=== PATIENT | female | born 1960 | race Caucasian/White ===

== ENCOUNTER → 2019-04-16 06:54 | Outpatient (CLI) | payer BC, SELFPAY ==
[2019-04-16 07:32] LABS: Add Manual Diff / Slide Review NO; Basophils Absolute Auto 100 /uL (0-100); Eosinophils Absolute Auto 200 /uL (0-450); Eosinophils Percent Auto 3.2 % (2-4); Hemoglobin 14.7 g/dL (12.0-16.0); Lymphocytes Absolute Auto 1600 /uL (1100-4500); Mean Corpuscular HGB Conc 34.2 % (30-36); Mean Corpuscular Hemoglobin 31.7 PG (26-34); Mean Corpuscular Volume 92.7 fL (80-100); Monocytes Absolute Auto 300 /uL (0-900); Monocytes Percent Auto 6.6 % (3-14); Neutrophils Absolute Auto 3100 /uL (1500-7000); Neutrophils Percent Auto 59.2 % (50-75); Platelet Count 244 X10^3/uL (150-400); Red Blood Cell Count 4.63 X10^6/uL (4.0-5.2); Red Cell Distribution Width 12.7 % (11.6-14.8); White Blood Cell Count 5.2 X10^3/uL (4.5-11.0)
[2019-04-16 07:45] LABS: Hemoglobin A1C% w Est Avg Glu 5.7 % (4.0-6.0)
[2019-04-16 08:52] LABS: Alanine Aminotransferase 14 IU/L (9-52); Albumin 4.3 g/dL (3.5-5.0); Albumin Globulin Ratio 1.5 (1.0-2.8); Alkaline Phosphatase 60 U/L (38-126); Aspartate Aminotransferase 23 IU/L (14-36); BUN Creatinine Ratio 17.8 (6-22); Bilirubin Total 0.8 mg/dL (0.2-1.3); Blood Urea Nitrogen 16 mg/dL (7-17); Calcium 9.8 mg/dL (8.4-10.2); Carbon Dioxide 29 mmol/L (22-32); Chloride 100 mmol/L (98-107); Cholesterol 253 mg/dL (140-199); Estimated Glomerular Filt Rate > 60.0 mL/min (>60); Globulin 2.8 g/dL (1.7-4.1); Glucose 101 mg/dL (80-110); HDL Cholesterol 54 mg/dL (40-60); HEMOLYSIS < 15 (0-50); LDL Cholesterol Calculated 165 mg/dL (<100); Potassium 4.1 mmol/L (3.4-5.1); Sodium 138 mmol/L (137-145); Total Protein 7.1 g/dL (6.3-8.2); Triglycerides 168 mg/dL (35-150)
[2019-04-16 09:07] LABS: Vitamin D 25 Hydroxy (D3) 32.6 ng/mL (30.0-100.0)
[2019-04-16 09:21] LABS: Thyroid Stimulating Hormone 1.14 uIU/mL (0.47-4.68)
== END ==
PROVIDERS: Visit Provider Physician Assistant
DX: E78.49 Other hyperlipidemia (principal); E55.9 Vitamin D deficiency, unspecified; Z13.1 Encounter for screening for diabetes mellitus
CPT/HCPCS: 36415; 80053; 80061; 82306; 83036; 84443; 85025

== ENCOUNTER → 2020-08-03 19:48 | Outpatient (ROUT) | payer BC, SELFPAY ==
[2020-08-03 20:17] LABS: Add Manual Diff / Slide Review NO; Basophils Absolute Auto 0 /uL (0-100); Basophils Percent Auto 0.9 % (0-2); Eosinophils Absolute Auto 200 /uL (0-450); Eosinophils Percent Auto 2.9 % (2-4); Hematocrit 43.8 % (36-46); Hemoglobin 14.6 g/dL (12.0-16.0); Lymphocytes Absolute Auto 1500 /uL (1100-4500); Lymphocytes Percent Auto 28.7 % (25-40); Mean Corpuscular HGB Conc 33.4 % (30-36); Mean Corpuscular Hemoglobin 31.1 PG (26-34); Mean Corpuscular Volume 93.1 fL (80-100); Monocytes Absolute Auto 300 /uL (0-900); Monocytes Percent Auto 5.3 % (3-14); Neutrophils Absolute Auto 3300 /uL (1500-7000); Neutrophils Percent Auto 62.2 % (50-75); Platelet Count 239 X10^3/uL (150-400); Red Cell Distribution Width 12.8 % (11.6-14.8); White Blood Cell Count 5.3 X10^3/uL (4.5-11.0)
[2020-08-03 20:25] LABS: Alanine Aminotransferase 20 IU/L (<35); Albumin 4.4 g/dL (3.5-5.0); Albumin Globulin Ratio 1.6 (1.0-2.8); Alkaline Phosphatase 60 U/L (38-126); Aspartate Aminotransferase 28 IU/L (14-36); BUN Creatinine Ratio 17.6 (6-22); Bilirubin Total 0.8 mg/dL (0.2-1.3); Blood Urea Nitrogen 15 mg/dL (7-17); Calcium 9.6 mg/dL (8.4-10.2); Carbon Dioxide 27 mmol/L (22-32); Chloride 103 mmol/L (98-107); Cholesterol 250 mg/dL (140-199); Estimated Glomerular Filt Rate > 60.0 mL/min (>60); Globulin 2.8 g/dL (1.7-4.1); Glucose 96 mg/dL (80-110); HDL Cholesterol 52 mg/dL (40-60); HEMOLYSIS < 15 (0-50); LDL Cholesterol Calculated 164 mg/dL (<100); Potassium 4.3 mmol/L (3.4-5.1); Sodium 137 mmol/L (137-145); Total Protein 7.2 g/dL (6.3-8.2); Triglycerides 171 mg/dL (35-150)
[2020-08-03 20:26] LABS: Hemoglobin A1C% w Est Avg Glu 5.9 % (4.0-6.0)
[2020-08-03 20:41] LABS: Vitamin D 25 Hydroxy (D3) 32.2 ng/mL (30.0-100.0)
[2020-08-03 20:54] LABS: TSH w/ Reflex to FT4 1.67 uIU/mL (0.47-4.68)
== END ==
PROVIDERS: Visit Provider Physician Assistant
DX: E55.9 Vitamin D deficiency, unspecified (principal); E78.49 Other hyperlipidemia; E03.9 Hypothyroidism, unspecified
CPT/HCPCS: 80053; 80061; 82306; 83036; 84443; 85025

== ENCOUNTER → 2020-12-15 08:34 | Outpatient (CLI) | payer BC, SELFPAY ==
[2020-12-15] MEDS: COVID-19 VACC(MODERNA-1)/PF 100 MCG/0.5 ML VIAL IM (08:41)
== END ==
PROVIDERS: Visit Provider Internal Medicine
DX: Z23 Encounter for immunization (principal)
CPT/HCPCS: 0011A; 91301

== ENCOUNTER → 2021-01-12 08:00 | Outpatient (CLI) | payer BC, SELFPAY ==
[2021-01-12] MEDS: COVID-19 VACC #2, MRNA(MOD) 100 MCG/0.5 ML VIAL IM (08:03)
== END ==
PROVIDERS: Visit Provider Internal Medicine
DX: Z23 Encounter for immunization (principal)
CPT/HCPCS: 0012A; 91301

== ENCOUNTER → 2021-04-02 13:19 | Outpatient (CLI) | payer BC, SELFPAY ==
--- NOTE | 2021-04-02 13:21 | DI.RAD.S_ITS ---
PROCEDURE: XR ANKLE LT MIN 3V INDICATIONS: rolled ankle, swelling, lateral mallelar point tender TECHNIQUE: 3 views of the ankle were acquired. COMPARISON: None. FINDINGS: Bones: Small cortical avulsion fracture at the tip the lateral malleolus. Soft tissues: Overlying soft tissue swelling. IMPRESSION: Cortical fracture involving the tip the lateral malleolus with overlying soft tissue swelling. Dictated by: You Natarajan M.D. on 04/02/2021 at 14:00 Approved by: You Natarajan M.D. on 04/02/2021 at 14:02
== END ==
PROVIDERS: PCP Physician Assistant; Referring Provider Student in an Organized Health Care Education/Training Program; Visit Provider Student in an Organized Health Care Education/Training Program
DX: S82.62XA Displaced fracture of lateral malleolus of left fibula, initial encounter for closed fracture (principal); X58.XXXA Exposure to other specified factors, initial encounter
CPT/HCPCS: 73610

== ENCOUNTER 2021-04-25 12:24 | Emergency (ER) | payer BC, SELFPAY ==
[2021-04-25] VITALS (9 sets, daily range): BP systolic 116–171; BP diastolic 60–79; PULSE 69–79; RESP 10–24; TEMP 36.9; O2SAT 96–100; BMI 25.8
--- NOTE | 2021-04-25 12:26 | DI.RAD.S_ITS ---
PROCEDURE: XR CHEST 1V INDICATIONS: chest pain TECHNIQUE: One view of the chest was acquired. COMPARISON: None. FINDINGS: Surgical changes and devices: None. Lungs and pleura: Lungs are clear. No pleural effusions or pneumothorax. Mediastinum: Mediastinal contours appear normal. Heart size is normal. Bones and chest wall: No suspicious bony lesions. Overlying soft tissues appear unremarkable. IMPRESSION: No acute cardiopulmonary abnormality. Dictated by: Antony Garcia M.D. on 04/25/2021 at 12:50 Approved by: Antony Garcia M.D. on 04/25/2021 at 12:50
--- NOTE | 2021-04-25 12:50 | ED.ARRPALP ---
HPI - Arrhythmia/Palpitations General Chief Complaint: Arrhythmia/Palpitations Stated Complaint: had heart palpitations and high BP Time Seen by Provider: 04/25/21 12:30 Source: patient Mode of arrival: Ambulatory Limitations: no limitations History of Present Illness HPI narrative: Patient is a 60-year-old female who is here for evaluation of palpitations and some lightheadedness. Patient states that this morning she was sitting at work when she had a sudden onset of feeling like her heart was beating fast and skipping beats. She was lightheaded during the time. No chest pain. No shortness of breath. She did have an episode of chest discomfort a couple days ago but that has resolved. She went to a co-worker who took her blood pressure him was told that it was elevated. They contacted EMS who came to her work space and did a EKG which she was told was normal. (I was able to review this and it was sinus rhythm with a normal rate) she was instructed that she needed to come to the emergency department for evaluation. Currently she feels somewhat better than what she did earlier today but not completely back to normal again. She did have a fainting episode almost 2 years ago but nothing since. Related Data Home Medications Medication Instructions Recorded Confirmed levothyroxine 88 mcg capsule 88 mcg PO DAILY 04/02/21 04/02/21 Allergies Allergy/AdvReac Type Severity Reaction Status Date / Time No Known Drug Allergies Allergy Unverified 04/02/21 12:30 Review of Systems Constitutional Constitutional: Denies headache(s) ENT Ears, Nose, Mouth, and Throat: Denies vertigo, Reports dizziness and Denies headache(s) Cardiovascular Cardiovascular: Denies chest pain, Reports rapid heart rate, Reports irregular heart rhythm and Denies dyspnea Respiratory Respiratory: Denies dyspnea Gastrointestinal Gastrointestinal: Reports system reviewed and no additional complaints, except as documented Musculoskeletal Musculoskeletal: Reports system reviewed and no additional complaints, except as documented Integumentary/Breasts Skin/Breast: Reports system reviewed and no additional complaints, except as documented Neurologic Neurologic: Denies vertigo, Reports dizziness and Denies headache(s) Hematologic/Lymphatic On Anticoagulants: No Allergic/Immunologic Allergic/Immunologic: Reports system reviewed and no additional complaints, except as documented Patient History Medical History Fracture, ankle Social History (Reviewed 05/26/21 @ 12:57 by JANICE Ray Smoking Status: Never smoker Smoking Status: Never smoker Substance Use Type: does not use Exam Initial Vital Signs Initial Vital Signs: Vital Signs Temperature 98.5 F 04/25/21 12:36 Pulse Rate 76 04/25/21 12:36 Respiratory Rate 18 04/25/21 12:36 Blood Pressure 171/79 H 04/25/21 12:36 Pulse Oximetry 100 04/25/21 12:36 Const General: cooperative, comfortable and well developed Limitations: mental status not altered HENMT Head: normal to inspection and normocephalic Resp Effort & Inspection: normal respiratory effort Auscultation: clear to auscultation bilaterally Cardio Rate: regular rate Rhythm: regular rhythm Pulses: radial pulses present GI Inspection: non-distended Palpation: soft Skin Lesions: no lesions Rashes: no rashes Neuro General: patient alert, patient awake and patient oriented x3 Cognition: normal cognition Speech: speech normal Extrem General: normal to inspection and capillary refill normal Psych Appearance: grossly normal and well kempt Course Orders Ordered: ED Orders 04/25/21 12:26 XR chest 1V Stat 04/25/21 12:33 EKG-12 Lead Stat 04/25/21 12:56 Complete Blood Count AUTO DIFF Stat Comprehensive Metabolic Panel Stat Free T3, Triiodothyronine Free Stat Free T4, Direct Thyroxine Stat Lipase Stat Partial Thromboplastin Time Stat Prothrombin Time INR Stat Thyroid Stimulating Hormone Stat Troponin & CK Cardiac Panel Stat Vital Signs Vital signs: Vital Signs - 8 hr 04/25/21 12:36 04/25/21 12:51 04/25/21 13:00 Temperature 98.5 F Pulse Rate 76 79 78 Respiratory Rate 18 13 24 Blood Pressure 171/79 H Pulse Oximetry 100 100 97 04/25/21 13:09 04/25/21 13:36 04/25/21 14:00 Temperature Pulse Rate 76 73 69 Respiratory Rate 22 14 11 L Blood Pressure 130/67 131/70 116/70 Pulse Oximetry 99 99 04/25/21 14:16 04/25/21 14:30 04/25/21 15:00 Temperature Pulse Rate 73 70 75 Respiratory Rate 10 L 11 L 20 Blood Pressure 133/60 Pulse Oximetry 99 96 97 MDM - Arrhythmia/Palpitations Lab Data Attestation: I reviewed the patient's lab results. Result diagrams: 04/25/21 12:56 04/25/21 12:56 Labs: Lab Results 04/25/21 04/25/21 04/25/21 Range/Units 12:56 12:56 12:56 WBC 10.7 (4.5-11.0) X10^3/uL RBC 4.56 (4.0-5.2) X10^6/uL Hgb 14.3 (12.0-16.0) g/dL Hct 41.7 (36-46) % MCV 91.4 (80-100) fL MCH 31.3 (26-34) PG MCHC 34.3 (30-36) % RDW 12.5 (11.6-14.8) % Plt Count 237 (150-400) X10^3/uL Neut % (Auto) 83.4 H (50-75) % Lymph % (Auto) 12.3 L (25-40) % Patrick % (Auto) 3.3 (3-14) % Eos % (Auto) 0.5 L (2-4) % Baso % (Auto) 0.5 (0-2) % Neut # (Auto) 9000 H (5988-8050) /uL Lymph # (Auto) 1300 (6025-4039) /uL Patrick # (Auto) 400 (0-900) /uL Eos # (Auto) 100 (0-450) /uL Baso # (Auto) 100 (0-100) /uL PT 11.2 (10.1-12.7) SECONDS INR 1.0 (0.9-1.3) APTT 52 H (26.4-36.2) SECONDS Sodium 135 L (137-145) mmol/L Potassium 4.2 (3.4-5.1) mmol/L Chloride 101 (98-107) mmol/L Carbon Dioxide 25 (22-32) mmol/L BUN 18 H (7-17) mg/dL Creatinine 0.79 (0.52-1.04) mg/dL Estimated GFR > 60.0 (>60) mL/min BUN/Creatinine Ratio 22.8 H (6-22) Glucose 117 H (80-110) mg/dL Calcium 9.7 (8.4-10.2) mg/dL Total Bilirubin 0.4 (0.2-1.3) mg/dL AST 26 (14-36) IU/L ALT 22 (<35) IU/L Alkaline Phosphatase 67 (38-126) U/L Total Creatine Kinase 46 (30-135) U/L CK-MB (CK-2) TNP CK-MB (CK-2) Rel Index TNP Troponin I < 0.012 (0.01-0.034) ng/mL Total Protein 7.4 (6.3-8.2) g/dL Albumin 4.4 (3.5-5.0) g/dL Globulin 3.0 (1.7-4.1) g/dL Albumin/Globulin Ratio 1.5 (1.0-2.8) Lipase 58 (23-300) U/L TSH (0.47-4.68) uIU/mL 04/25/21 Range/Units 12:56 WBC (4.5-11.0) X10^3/uL RBC (4.0-5.2) X10^6/uL Hgb (12.0-16.0) g/dL Hct (36-46) % MCV (80-100) fL MCH (26-34) PG MCHC (30-36) % RDW (11.6-14.8) % Plt Count (150-400) X10^3/uL Neut % (Auto) (50-75) % Lymph % (Auto) (25-40) % Patrick % (Auto) (3-14) % Eos % (Auto) (2-4) % Baso % (Auto) (0-2) % Neut # (Auto) (4272-8213) /uL Lymph # (Auto) (6705-3006) /uL Patrick # (Auto) (0-900) /uL Eos # (Auto) (0-450) /uL Baso # (Auto) (0-100) /uL PT (10.1-12.7) SECONDS INR (0.9-1.3) APTT (26.4-36.2) SECONDS Sodium (137-145) mmol/L Potassium (3.4-5.1) mmol/L Chloride (98-107) mmol/L Carbon Dioxide (22-32) mmol/L BUN (7-17) mg/dL Creatinine (0.52-1.04) mg/dL Estimated GFR (>60) mL/min BUN/Creatinine Ratio (6-22) Glucose (80-110) mg/dL Calcium (8.4-10.2) mg/dL Total Bilirubin (0.2-1.3) mg/dL AST (14-36) IU/L ALT (<35) IU/L Alkaline Phosphatase (38-126) U/L Total Creatine Kinase (30-135) U/L CK-MB (CK-2) CK-MB (CK-2) Rel Index Troponin I (0.01-0.034) ng/mL Total Protein (6.3-8.2) g/dL Albumin (3.5-5.0) g/dL Globulin (1.7-4.1) g/dL Albumin/Globulin Ratio (1.0-2.8) Lipase (23-300) U/L TSH 0.923 (0.47-4.68) uIU/mL Imaging Data Chest x-ray: Radiologist's Impresson: [address] [id number] ReportSigned Patient: Sharda Larry DMR#: [id number]: 8Acct:[id number]/Sex: 60 / FDate of Service: 04/25/21Loc: EDAccession Number: [id number] Procedure: XR chest 1V Ordering Provider: Kush Hurd D.O. PROCEDURE: XR CHEST 1V INDICATIONS: chest pain TECHNIQUE: One view of the chest was acquired. COMPARISON: None. FINDINGS: Surgical changes and devices: None. Lungs and pleura: Lungs are clear. No pleural effusions or pneumothorax. Mediastinum: Mediastinal contours appear normal. Heart size is normal. Bones and chest wall: No suspicious bony lesions. Overlying soft tissues appear unremarkable. IMPRESSION: No acute cardiopulmonary abnormality. Dictated by: Antony Garcia M.D. on 04/25/2021 at 12:50 Approved by: Antony Garcia M.D. on 04/25/2021 at 12:50 ECG Data Attestation: I personally reviewed and interpreted this ECG as follows: Prior ECG tracings: not available for review Interpretation: Sinus rhythm Ventricular rate 80 Normal axis Normal QRS Normal QTC Nonspecific ST T wave changes MDM Narrative Medical decision making narrative: EKG is unremarkable, labs are unremarkable, has had no ectopy while on the monitor here in the ER. Is afebrile. Low suspicion for ACS. I did discuss palpitations with her. We did discuss return precautions. I feel we can hold on further workup now and the patient will contact her primary provider to discuss the indications for a Holter monitor. She expressed understanding and agreement with plan. Discharge Plan Departure Patient Disposition: Home Clinical Impression: Palpitations Instructions: DI for Palpitations Activity Restrictions/Additional Instructions: Recommend that you continue all of your medications as directed. Contact your primary provider for follow-up. Return to the emergency department for any new or worsening symptoms Prescriptions: No Action levothyroxine 88 mcg capsule 88 mcg PO DAILY RF: 0 Referrals: Betsy Enamorado PA-C [Primary Care Provider] -
[2021-04-25 13:02] LABS: Add Manual Diff / Slide Review NO; Basophils Absolute Auto 100 /uL (0-100); Basophils Percent Auto 0.5 % (0-2); Eosinophils Absolute Auto 100 /uL (0-450); Eosinophils Percent Auto 0.5 % (2-4); Hematocrit 41.7 % (36-46); Hemoglobin 14.3 g/dL (12.0-16.0); Lymphocytes Absolute Auto 1300 /uL (1100-4500); Lymphocytes Percent Auto 12.3 % (25-40); Mean Corpuscular HGB Conc 34.3 % (30-36); Mean Corpuscular Hemoglobin 31.3 PG (26-34); Mean Corpuscular Volume 91.4 fL (80-100); Monocytes Absolute Auto 400 /uL (0-900); Monocytes Percent Auto 3.3 % (3-14); Neutrophils Absolute Auto 9000 /uL (1500-7000); Neutrophils Percent Auto 83.4 % (50-75); Platelet Count 237 X10^3/uL (150-400); Red Blood Cell Count 4.56 X10^6/uL (4.0-5.2); Red Cell Distribution Width 12.5 % (11.6-14.8); White Blood Cell Count 10.7 X10^3/uL (4.5-11.0)
[2021-04-25 13:10] LABS: Prothrombin Time 11.2 SECONDS (10.1-12.7)
[2021-04-25 13:12] LABS: PTT Partial Thromboplastin Tim 52 SECONDS (26.4-36.2)
[2021-04-25 13:18] LABS: Alanine Aminotransferase 22 IU/L (<35); Albumin 4.4 g/dL (3.5-5.0); Albumin Globulin Ratio 1.5 (1.0-2.8); Alkaline Phosphatase 67 U/L (38-126); Aspartate Aminotransferase 26 IU/L (14-36); BUN Creatinine Ratio 22.8 (6-22); Bilirubin Total 0.4 mg/dL (0.2-1.3); Blood Urea Nitrogen 18 mg/dL (7-17); Calcium 9.7 mg/dL (8.4-10.2); Carbon Dioxide 25 mmol/L (22-32); Chloride 101 mmol/L (98-107); Creatine Kinase 46 U/L (30-135); Estimated Glomerular Filt Rate > 60.0 mL/min (>60); Glucose 117 mg/dL (80-110); HEMOLYSIS < 15 (0-50); Lipase 58 U/L (23-300); Potassium 4.2 mmol/L (3.4-5.1); Sodium 135 mmol/L (137-145); Total Protein 7.4 g/dL (6.3-8.2)
[2021-04-25 13:29] LABS: Troponin I < 0.012 ng/mL (0.01-0.034)
[2021-04-25 14:31] LABS: Thyroid Stimulating Hormone 0.923 uIU/mL (0.47-4.68)
[2021-04-26 03:49] LABS: Free T4, Direct Thyroxine 1.69 ng/dL (0.78-2.19)
== END 2021-04-25 15:45 | disposition home or self-care (01) ==
PROVIDERS: Emergency Provider Emergency Medicine; PCP Physician Assistant
DX: R00.2 Palpitations (principal); R42 Dizziness and giddiness
CPT/HCPCS: 36415; 71045; 80053; 82550; 83690; 84439; 84443; 84481; 84484; 85025; 85610; 85730; 93005; 99283; 99284

== ENCOUNTER → 2021-10-05 15:43 | Outpatient (CLI) | payer OTHER, SELFPAY ==
--- NOTE | 2021-10-05 | DI.MG.S_ITS ---
BILATERAL DIGITAL SCREENING MAMMOGRAM 3D/2D WITH CAD: 10/05/2021 CLINICAL: Routine screening. Family history of breast cancer. Comparison is made to exams dated: 09/07/2014 mammogram, 09/02/2018 mammogram, and 09/06/2020 mammogram - outside location. The tissue of both breasts is heterogeneously dense. This may lower the sensitivity of mammography. Current study was also evaluated with a Computer Aided Detection (CAD) system. No significant masses, calcifications, or other findings are seen in either breast. There has been no significant interval change. IMPRESSION: NEGATIVE There is no mammographic evidence of malignancy. A 1 year screening mammogram is recommended. This exam was interpreted at Station ID: [id number]. NOTE: For mammograms, a report in lay terms will be sent to the patient. Approximately 15% of breast malignancies will not be visualized mammographically. In the management of a palpable breast mass, a negative mammogram must not discourage biopsy of a clinically suspicious lesion. Electronically Signed By: Nick murray/mayra:10/05/2021 16:04:29 letter sent: Normal Exam ACR BI-RADS Category 1: Negative [id number]
== END ==
PROVIDERS: PCP Physician Assistant; Referring Provider Physician Assistant; Visit Provider Physician Assistant
DX: Z12.31 Encounter for screening mammogram for malignant neoplasm of breast (principal); Z80.3 Family history of malignant neoplasm of breast
CPT/HCPCS: 77063; 77067

== ENCOUNTER 2023-01-15 12:59 | Emergency (ER) | payer OTHER, SELFPAY ==
[2023-01-15] VITALS (14 sets, daily range): BP systolic 124–157; BP diastolic 69–83; PULSE 60–84; RESP 12–24; TEMP 35.9; O2SAT 96–99; BMI 25.3
--- NOTE | 2023-01-15 13:14 | DI.RAD.S_ITS ---
PROCEDURE: XR CHEST 1V INDICATIONS: chest pain TECHNIQUE: One view of the chest was acquired. COMPARISON: [facility], CR, XR CHEST 1V, 04/25/2021, 12:28. FINDINGS: Surgical changes and devices: None. Lungs and pleura: Lungs are clear. No pleural effusions or pneumothorax. Mediastinum: Mediastinal contours appear normal. Heart size is normal. Bones and chest wall: No suspicious bony lesions. Overlying soft tissues appear unremarkable. IMPRESSION: No acute cardiopulmonary process. Dictated by: Naresh Downey M.D. on 01/15/2023 at 13:57 Approved by: Naresh Downey M.D. on 01/15/2023 at 13:57
[2023-01-15 13:38] LABS: Add Manual Diff / Slide Review NO; Basophils Absolute Auto 0 /uL (0-100); Basophils Percent Auto 0.4 % (0-2); Eosinophils Absolute Auto 200 /uL (0-450); Hematocrit 42.1 % (36-46); Hemoglobin 14.2 g/dL (12.0-16.0); Lymphocytes Absolute Auto 2500 /uL (1100-4500); Lymphocytes Percent Auto 25.6 % (25-40); Mean Corpuscular HGB Conc 33.7 % (30-36); Mean Corpuscular Hemoglobin 30.9 PG (26-34); Mean Corpuscular Volume 91.6 fL (80-100); Monocytes Absolute Auto 500 /uL (0-900); Monocytes Percent Auto 4.7 % (3-14); Neutrophils Absolute Auto 6500 /uL (1500-7000); Neutrophils Percent Auto 67.3 % (50-75); Platelet Count 238 X10^3/uL (150-400); Red Cell Distribution Width 12.9 % (11.6-14.8); White Blood Cell Count 9.6 X10^3/uL (4.5-11.0)
[2023-01-15 13:44] LABS: Prothrombin Time 11.3 SECONDS (10.1-12.7)
[2023-01-15 13:47] LABS: PTT Partial Thromboplastin Tim 51 SECONDS (26-36)
[2023-01-15 14:11] LABS: COVID19 -Nasal RAPID Negative (Negative)
[2023-01-15 14:21] LABS: Alanine Aminotransferase 25 IU/L (<35); Albumin 4.3 g/dL (3.5-5.0); Albumin Globulin Ratio 1.4 (1.0-2.8); Alkaline Phosphatase 64 U/L (38-126); Aspartate Aminotransferase 28 IU/L (14-36); BUN Creatinine Ratio 20.8 (6-22); Bilirubin Total 0.5 mg/dL (0.2-1.3); Blood Urea Nitrogen 16 mg/dL (7-17); Calcium 9.4 mg/dL (8.4-10.2); Carbon Dioxide 32 mmol/L (22-32); Chloride 100 mmol/L (98-107); Creatine Kinase 68 U/L (30-135); Estimated Glomerular Filt Rate > 60 mL/min (>60); Glucose 117 mg/dL (80-110); HEMOLYSIS < 15 (0-50); Lipase 78 U/L (23-300); Potassium 3.3 mmol/L (3.4-5.1); Sodium 139 mmol/L (137-145); Total Protein 7.3 g/dL (6.3-8.2)
[2023-01-15 14:30] LABS: Troponin I < 0.012 ng/mL (0.01-0.034)
--- NOTE | 2023-01-15 18:30 | ED.ARRPALP ---
HPI - Arrhythmia/Palpitations <AR Prather - Last Filed: 01/15/23 20:43> General Chief Complaint: Arrhythmia/Palpitations Stated Complaint: Palpitations Time Seen by Provider: 01/15/23 18:12 History of Present Illness HPI narrative: This is a 62-year-old female with history of palpitations, states that they have been intermittent since July 2022 and states that she had an episode of palpitations today and noticed on her phone that she had a sinus arrhythmia and came in for evaluation of this. Patient states that her mother of a sudden WI at age 72. Patient states that she wore a Zio patch in July of 2022 without any abnormalities on there. She presents today with concerns about these palpitations, denies dizziness or shortness of breath associated with them. Denies recent illness. Denies chest pain or chest pressure. 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 Sanabria in [place] and that was negative. She does not have hypertension, coronary artery disease or any lifestyle risk factors for cardiac disease. She states that she is had increased stress due to many life situations and the only medication she takes is levothyroxine. She states she has autism and that is her only medication, denies any other changes to her routine or new symptoms. Related Data Home Medications Medication Instructions Recorded Confirmed levothyroxine 88 mcg capsule 88 mcg PO DAILY 04/02/21 04/02/21 Allergies Allergy/AdvReac Type Severity Reaction Status Date / Time No Known Drug Allergies Allergy Unverified 04/02/21 12:30 Review of Systems <AR Prather - Last Filed: 01/15/23 20:43> Review of Systems ROS Unobtainable: All systems reviewed & are unremarkable except as noted in HPI and below Patient History <AR Prather - Last Filed: 01/15/23 20:43> Medical History Fracture, ankle Social History Smoking Status: Never smoker Smoking Status: Never smoker Substance Use Type: does not use Exam <AR Prather - Last Filed: 01/15/23 20:43> Narrative Exam Narrative: Reviewed vitals signs and nursing notes. General: cooperative, comfortable, in no acute distress, well groomed HEENT: symmetrical facial expressions, moist mucous membranes, EOMI Cardiovascular: regular rate and rhythm, S1-S2 without arrhythmia noted on monitor, equal and strong radial pulses, no peripheral edema, warm extremities Respiratory: normal effort, able to speak in complete sentences, without wheezing, stridor, or abnormal breath sounds. No retractions or tachypnea. GI: abdomen soft, nontender to palpation, nondistended, without masses, rebound tenderness or exquisite tenderness with exam. MSK: moves all extremities, neurovascularly intact, no weakness, normal tone Skin: brisk capillary refill, without pallor or erythema Neuro: normal speech and cognition, A&O x3, ambulatory, clear speech Psych: mental status is grossly normal, congruent mood, normal affect, pleasant and cooperative Initial Vital Signs Initial Vital Signs: Vital Signs Temperature 96.6 F L 01/15/23 13:09 Pulse Rate 84 01/15/23 13:09 Respiratory Rate 16 01/15/23 13:09 Blood Pressure 155/83 H 01/15/23 13:09 Pulse Oximetry 98 01/15/23 13:09 Oxygen Delivery Method 01/15/23 13:09 <Dallas Desai DO - Last Filed: 01/16/23 03:40> Initial Vital Signs Initial Vital Signs: Vital Signs Temperature 96.6 F L 01/15/23 13:09 Pulse Rate 84 01/15/23 13:09 Respiratory Rate 16 01/15/23 13:09 Blood Pressure 155/83 H 01/15/23 13:09 Pulse Oximetry 98 01/15/23 13:09 Oxygen Delivery Method 01/15/23 13:09 Course <AR Prather - Last Filed: 01/15/23 20:43> Orders Ordered: ED Orders 01/15/23 18:55 D Dimer Stat Troponin I Stat 01/15/23 18:59 EKG-12 Lead Stat Discontinued Medications Ondansetron HCl (Ondansetron 4 Mg Odt) 4 mg SL NOW ONE Stop: 01/15/23 18:58 Last Admin: 01/15/23 19:13 Dose: Not Given Documented By: KM Potassium Chloride (Potassium Chloride 20 Meq/15 Ml Udc) 20 meq PO NOW ONE Stop: 01/15/23 18:29 Last Admin: 01/15/23 19:00 Dose: Not Given Documented By: LOIDA Potassium Chloride (Potassium Chloride 20 Meq Tab) 40 meq PO NOW ONE Stop: 01/15/23 18:58 Last Admin: 01/15/23 19:13 Dose: 40 meq Documented By: LOIDA Vital Signs Vital signs: Vital Signs - 8 hr 01/15/23 20:00 Pulse Rate 60 Respiratory Rate 24 Pulse Oximetry 97 <Dallas Desai DO - Last Filed: 01/16/23 03:40> Orders Ordered: ED Orders 01/15/23 18:55 D Dimer Stat Troponin I Stat 01/15/23 18:59 EKG-12 Lead Stat Discontinued Medications Ondansetron HCl (Ondansetron 4 Mg Odt) 4 mg SL NOW ONE Stop: 01/15/23 18:58 Last Admin: 01/15/23 19:13 Dose: Not Given Documented By: LOIDA Potassium Chloride (Potassium Chloride 20 Meq/15 Ml Udc) 20 meq PO NOW ONE Stop: 01/15/23 18:29 Last Admin: 01/15/23 19:00 Dose: Not Given Documented By: LOIDA Potassium Chloride (Potassium Chloride 20 Meq Tab) 40 meq PO NOW ONE Stop: 01/15/23 18:58 Last Admin: 01/15/23 19:13 Dose: 40 meq Documented By: LOIDA Vital Signs Vital signs: Vital Signs - 8 hr 01/15/23 20:00 Pulse Rate 60 Respiratory Rate 24 Pulse Oximetry 97 MDM - Arrhythmia/Palpitations <AR Prather - Last Filed: 01/15/23 20:43> Lab Data 01/15/23 13:19 01/15/23 13:19 Labs: Lab Results 01/15/23 01/15/23 01/15/23 Range/Units 13:19 13:19 13:19 WBC 9.6 (4.5-11.0) X10^3/uL RBC 4.60 (4.0-5.2) X10^6/uL Hgb 14.2 (12.0-16.0) g/dL Hct 42.1 (36-46) % MCV 91.6 (80-100) fL MCH 30.9 (26-34) PG MCHC 33.7 (30-36) % RDW 12.9 (11.6-14.8) % Plt Count 238 (150-400) X10^3/uL Neut % (Auto) 67.3 (50-75) % Lymph % (Auto) 25.6 (25-40) % Kidder % (Auto) 4.7 (3-14) % Eos % (Auto) 2.0 (2-4) % Baso % (Auto) 0.4 (0-2) % Neut # (Auto) 6500 (0378-0984) /uL Lymph # (Auto) 2500 (9779-5508) /uL Kidder # (Auto) 500 (0-900) /uL Eos # (Auto) 200 (0-450) /uL Baso # (Auto) 0 (0-100) /uL PT 11.3 (10.1-12.7) SECONDS INR 1.0 (0.9-1.3) APTT 51 H (26-36) SECONDS D-Dimer (<500) ng/ml Sodium 139 (137-145) mmol/L Potassium 3.3 L (3.4-5.1) mmol/L Chloride 100 (98-107) mmol/L Carbon Dioxide 32 (22-32) mmol/L BUN 16 (7-17) mg/dL Creatinine 0.77 (0.52-1.04) mg/dL Estimated GFR > 60 (>60) mL/min BUN/Creatinine Ratio 20.8 (6-22) Glucose 117 H (80-110) mg/dL Calcium 9.4 (8.4-10.2) mg/dL Magnesium 2.0 (1.6-2.3) mg/dL Total Bilirubin 0.5 (0.2-1.3) mg/dL AST 28 (14-36) IU/L ALT 25 (<35) IU/L Alkaline Phosphatase 64 (38-126) U/L Total Creatine Kinase 68 (30-135) U/L CK-MB (CK-2) TNP CK-MB (CK-2) Rel Index TNP Troponin I < 0.012 (0.01-0.034) ng/mL Total Protein 7.3 (6.3-8.2) g/dL Albumin 4.3 (3.5-5.0) g/dL Globulin 3.0 (1.7-4.1) g/dL Albumin/Globulin Ratio 1.4 (1.0-2.8) Lipase 78 (23-300) U/L TSH (0.47-4.68) uIU/mL Free T4 (0.78-2.19) ng/dL SARS-CoV-2 (PCR) (Negative) 01/15/23 01/15/23 01/15/23 Range/Units 13:19 13:19 18:55 WBC (4.5-11.0) X10^3/uL RBC (4.0-5.2) X10^6/uL Hgb (12.0-16.0) g/dL Hct (36-46) % MCV (80-100) fL MCH (26-34) PG MCHC (30-36) % RDW (11.6-14.8) % Plt Count (150-400) X10^3/uL Neut % (Auto) (50-75) % Lymph % (Auto) (25-40) % Kidder % (Auto) (3-14) % Eos % (Auto) (2-4) % Baso % (Auto) (0-2) % Neut # (Auto) (7072-1260) /uL Lymph # (Auto) (4693-4962) /uL Kidder # (Auto) (0-900) /uL Eos # (Auto) (0-450) /uL Baso # (Auto) (0-100) /uL PT (10.1-12.7) SECONDS INR (0.9-1.3) APTT (26-36) SECONDS D-Dimer 672 H (<500) ng/ml Sodium (137-145) mmol/L Potassium (3.4-5.1) mmol/L Chloride (98-107) mmol/L Carbon Dioxide (22-32) mmol/L BUN (7-17) mg/dL Creatinine (0.52-1.04) mg/dL Estimated GFR (>60) mL/min BUN/Creatinine Ratio (6-22) Glucose (80-110) mg/dL Calcium (8.4-10.2) mg/dL Magnesium (1.6-2.3) mg/dL Total Bilirubin (0.2-1.3) mg/dL AST (14-36) IU/L ALT (<35) IU/L Alkaline Phosphatase (38-126) U/L Total Creatine Kinase (30-135) U/L CK-MB (CK-2) CK-MB (CK-2) Rel Index Troponin I (0.01-0.034) ng/mL Total Protein (6.3-8.2) g/dL Albumin (3.5-5.0) g/dL Globulin (1.7-4.1) g/dL Albumin/Globulin Ratio (1.0-2.8) Lipase (23-300) U/L TSH 1.11 (0.47-4.68) uIU/mL Free T4 1.37 (0.78-2.19) ng/dL SARS-CoV-2 (PCR) Negative (Negative) 01/15/23 Range/Units 18:55 WBC (4.5-11.0) X10^3/uL RBC (4.0-5.2) X10^6/uL Hgb (12.0-16.0) g/dL Hct (36-46) % MCV (80-100) fL MCH (26-34) PG MCHC (30-36) % RDW (11.6-14.8) % Plt Count (150-400) X10^3/uL Neut % (Auto) (50-75) % Lymph % (Auto) (25-40) % Kidder % (Auto) (3-14) % Eos % (Auto) (2-4) % Baso % (Auto) (0-2) % Neut # (Auto) (5708-3066) /uL Lymph # (Auto) (4565-9180) /uL Kidder # (Auto) (0-900) /uL Eos # (Auto) (0-450) /uL Baso # (Auto) (0-100) /uL PT (10.1-12.7) SECONDS INR (0.9-1.3) APTT (26-36) SECONDS D-Dimer (<500) ng/ml Sodium (137-145) mmol/L Potassium (3.4-5.1) mmol/L Chloride (98-107) mmol/L Carbon Dioxide (22-32) mmol/L BUN (7-17) mg/dL Creatinine (0.52-1.04) mg/dL Estimated GFR (>60) mL/min BUN/Creatinine Ratio (6-22) Glucose (80-110) mg/dL Calcium (8.4-10.2) mg/dL Magnesium (1.6-2.3) mg/dL Total Bilirubin (0.2-1.3) mg/dL AST (14-36) IU/L ALT (<35) IU/L Alkaline Phosphatase (38-126) U/L Total Creatine Kinase (30-135) U/L CK-MB (CK-2) CK-MB (CK-2) Rel Index Troponin I < 0.012 (0.01-0.034) ng/mL Total Protein (6.3-8.2) g/dL Albumin (3.5-5.0) g/dL Globulin (1.7-4.1) g/dL Albumin/Globulin Ratio (1.0-2.8) Lipase (23-300) U/L TSH (0.47-4.68) uIU/mL Free T4 (0.78-2.19) ng/dL SARS-CoV-2 (PCR) (Negative) Urine Dip Bedside Urine Glucose Negative Bedside Urine Bilirubin - Negative Bedside Urine Ketone - Negative Urine Specific Parnell 1.010 Bedside Urine Occult Blood - Negative Bedside Urine pH 6.5 Bedside Urine Protein - Negative Bedside Urine Urobilinogen - Negative Bedside Urine Nitrite - Negative Bedside Urine Leukocytes - Negative Esterase Imaging Data Chest x-ray: Radiologist's Impresson: PROCEDURE:? XR CHEST 1V ? INDICATIONS:? chest pain ? TECHNIQUE:? One view of the chest was acquired.? ? COMPARISON:? [facility], , XR CHEST 1V, 04/25/2021, 12:28. ? FINDINGS:? ? Surgical changes and devices:? None.? ? Lungs and pleura:? Lungs are clear.? No pleural effusions or pneumothorax.? ? Mediastinum:? Mediastinal contours appear normal.? Heart size is normal.? ? Bones and chest wall:? No suspicious bony lesions.? Overlying soft tissues appear unremarkable.? ? IMPRESSION:? No acute cardiopulmonary process. ? ? Dictated by: Naresh Downey M.D. on 01/15/2023 at 13:57 ? ? Approved by: Naresh Downey M.D. on 01/15/2023 at 13:57 ? ECG Data Interpretation: EKG independently reviewed by myself at 1840 reveals normal sinus rhythm with sinus arrhythmia at [74] bpm with regular axis and intervals. No STEMI, nonspecific ST segment changes, arrhythmia, or acute ischemic changes. Her last EKG from 04/26/[address] changes as well without any acute changes on EKG today MDM Narrative Medical decision making narrative: Chief Complaint: Palpitations This is a 62-year-old female with history of palpitations, states that they have been intermittent since July 2022 and states that she had an episode of palpitations today and noticed on her phone that she had a sinus arrhythmia and came in for evaluation of this. Patient states that her mother of a sudden [place] at age 72. Patient states that she wore a Zio patch in July of 2022 without any abnormalities on there. She presents today with concerns about these palpitations, denies dizziness or shortness of breath associated with them. Differential diagnoses include but are not limited to: WI, PE, pneumothorax, pneumonia, aortic dissection, pericarditis, muscle strain/sprain, costochondritis, gastritis versus GERD/gastric ulcer, viral process and pleurisy I have reviewed the patient's vital signs and nursing notes as well as prior records if available. Pertinent lab findings reviewed: CMP is significant for hypokalemia with a potassium of 3.3, troponin is negative for elevation, lipase is normal, COVID PCR is negative, CBC is unremarkable, both troponins are negative for elevation. Pertinent Imaging reviewed: Chest x-ray Clinical decision rules or scores evaluated: Heart score of 1, PERC of 1 no evidence of lower extremity edema, no history of blood clots, no history of hypertension or CAD. Calcium screen last year was negative. EKG findings: sinus arrhythmia with nonspecific ST changes Compared to patient?s last EKG 04/26/[address] changes are similar. Discussion: I met with the patient and discussed her symptoms, history and exam, on exam, heart sounds are S1-S2 without murmur, she does not currently have palpitations or associated symptoms including shortness of breath, chest pain, diaphoresis or other. She does not have any significant cardiac history, her workup today is overall unremarkable, she has mild hypokalemia with a potassium of 3.3, this is replaced with 40 mEq of potassium. She states that she is been stressed out lately due to some circumstantial life problems. Extensive conversation about her elevated D-dimer and testing for PE and patient has a fear of CT scan, I think she has a very low likelihood of a pulmonary embolus that she does not have any positive PERC criteria other than her age. Age adjusted D-dimer is 640 and her D-dimer is elevated to 672. Patient has a explosive operator supervisor in [place]- Dr. Sanabria, she will follow-up with him accordingly. She has had a Zio patch in the past, her palpitations are not paired with concerning chest pain symptoms. No acute ST changes. Shared decision-making with the patient to not complete CT PE and patient understands to return emergency department for worsening of her palpitations. I think this is most likely related to her stress. Patient's symptoms improved over duration of stay with above-stated therapies. Social considerations that may affect disposition: none Questions are addressed and there is agreement with the plan and for follow-up. Patient is appropriate for outpatient management. MIPS: This encounter doesn't have any diagnosis' associated with MIPS criteria. <Dallas Desai, - Last Filed: 01/16/23 03:40> Lab Data Labs: Lab Results 01/15/23 01/15/23 01/15/23 Range/Units 13:19 13:19 13:19 WBC 9.6 (4.5-11.0) X10^3/uL RBC 4.60 (4.0-5.2) X10^6/uL Hgb 14.2 (12.0-16.0) g/dL Hct 42.1 (36-46) % MCV 91.6 (80-100) fL MCH 30.9 (26-34) PG MCHC 33.7 (30-36) % RDW 12.9 (11.6-14.8) % Plt Count 238 (150-400) X10^3/uL Neut % (Auto) 67.3 (50-75) % Lymph % (Auto) 25.6 (25-40) % Kidder % (Auto) 4.7 (3-14) % Eos % (Auto) 2.0 (2-4) % Baso % (Auto) 0.4 (0-2) % Neut # (Auto) 6500 (4058-2095) /uL Lymph # (Auto) 2500 (1203-8374) /uL Kidder # (Auto) 500 (0-900) /uL Eos # (Auto) 200 (0-450) /uL Baso # (Auto) 0 (0-100) /uL PT 11.3 (10.1-12.7) SECONDS INR 1.0 (0.9-1.3) APTT 51 H (26-36) SECONDS D-Dimer (<500) ng/ml Sodium 139 (137-145) mmol/L Potassium 3.3 L (3.4-5.1) mmol/L Chloride 100 (98-107) mmol/L Carbon Dioxide 32 (22-32) mmol/L BUN 16 (7-17) mg/dL Creatinine 0.77 (0.52-1.04) mg/dL Estimated GFR > 60 (>60) mL/min BUN/Creatinine Ratio 20.8 (6-22) Glucose 117 H (80-110) mg/dL Calcium 9.4 (8.4-10.2) mg/dL Magnesium 2.0 (1.6-2.3) mg/dL Total Bilirubin 0.5 (0.2-1.3) mg/dL AST 28 (14-36) IU/L ALT 25 (<35) IU/L Alkaline Phosphatase 64 (38-126) U/L Total Creatine Kinase 68 (30-135) U/L CK-MB (CK-2) TNP CK-MB (CK-2) Rel Index TNP Troponin I < 0.012 (0.01-0.034) ng/mL Total Protein 7.3 (6.3-8.2) g/dL Albumin 4.3 (3.5-5.0) g/dL Globulin 3.0 (1.7-4.1) g/dL Albumin/Globulin Ratio 1.4 (1.0-2.8) Lipase 78 (23-300) U/L TSH (0.47-4.68) uIU/mL Free T4 (0.78-2.19) ng/dL SARS-CoV-2 (PCR) (Negative) 01/15/23 01/15/23 01/15/23 Range/Units 13:19 13:19 18:55 WBC (4.5-11.0) X10^3/uL RBC (4.0-5.2) X10^6/uL Hgb (12.0-16.0) g/dL Hct (36-46) % MCV (80-100) fL MCH (26-34) PG MCHC (30-36) % RDW (11.6-14.8) % Plt Count (150-400) X10^3/uL Neut % (Auto) (50-75) % Lymph % (Auto) (25-40) % Kidder % (Auto) (3-14) % Eos % (Auto) (2-4) % Baso % (Auto) (0-2) % Neut # (Auto) (6144-1363) /uL Lymph # (Auto) (2755-9167) /uL Kidder # (Auto) (0-900) /uL Eos # (Auto) (0-450) /uL Baso # (Auto) (0-100) /uL PT (10.1-12.7) SECONDS INR (0.9-1.3) APTT (26-36) SECONDS D-Dimer 672 H (<500) ng/ml Sodium (137-145) mmol/L Potassium (3.4-5.1) mmol/L Chloride (98-107) mmol/L Carbon Dioxide (22-32) mmol/L BUN (7-17) mg/dL Creatinine (0.52-1.04) mg/dL Estimated GFR (>60) mL/min BUN/Creatinine Ratio (6-22) Glucose (80-110) mg/dL Calcium (8.4-10.2) mg/dL Magnesium (1.6-2.3) mg/dL Total Bilirubin (0.2-1.3) mg/dL AST (14-36) IU/L ALT (<35) IU/L Alkaline Phosphatase (38-126) U/L Total Creatine Kinase (30-135) U/L CK-MB (CK-2) CK-MB (CK-2) Rel Index Troponin I (0.01-0.034) ng/mL Total Protein (6.3-8.2) g/dL Albumin (3.5-5.0) g/dL Globulin (1.7-4.1) g/dL Albumin/Globulin Ratio (1.0-2.8) Lipase (23-300) U/L TSH 1.11 (0.47-4.68) uIU/mL Free T4 1.37 (0.78-2.19) ng/dL SARS-CoV-2 (PCR) Negative (Negative) 01/15/23 Range/Units 18:55 WBC (4.5-11.0) X10^3/uL RBC (4.0-5.2) X10^6/uL Hgb (12.0-16.0) g/dL Hct (36-46) % MCV (80-100) fL MCH (26-34) PG MCHC (30-36) % RDW (11.6-14.8) % Plt Count (150-400) X10^3/uL Neut % (Auto) (50-75) % Lymph % (Auto) (25-40) % Kidder % (Auto) (3-14) % Eos % (Auto) (2-4) % Baso % (Auto) (0-2) % Neut # (Auto) (5037-6231) /uL Lymph # (Auto) (8739-0508) /uL Kidder # (Auto) (0-900) /uL Eos # (Auto) (0-450) /uL Baso # (Auto) (0-100) /uL PT (10.1-12.7) SECONDS INR (0.9-1.3) APTT (26-36) SECONDS D-Dimer (<500) ng/ml Sodium (137-145) mmol/L Potassium (3.4-5.1) mmol/L Chloride (98-107) mmol/L Carbon Dioxide (22-32) mmol/L BUN (7-17) mg/dL Creatinine (0.52-1.04) mg/dL Estimated GFR (>60) mL/min BUN/Creatinine Ratio (6-22) Glucose (80-110) mg/dL Calcium (8.4-10.2) mg/dL Magnesium (1.6-2.3) mg/dL Total Bilirubin (0.2-1.3) mg/dL AST (14-36) IU/L ALT (<35) IU/L Alkaline Phosphatase (38-126) U/L Total Creatine Kinase (30-135) U/L CK-MB (CK-2) CK-MB (CK-2) Rel Index Troponin I < 0.012 (0.01-0.034) ng/mL Total Protein (6.3-8.2) g/dL Albumin (3.5-5.0) g/dL Globulin (1.7-4.1) g/dL Albumin/Globulin Ratio (1.0-2.8) Lipase (23-300) U/L TSH (0.47-4.68) uIU/mL Free T4 (0.78-2.19) ng/dL SARS-CoV-2 (PCR) (Negative) Urine Dip Bedside Urine Glucose Negative Bedside Urine Bilirubin - Negative Bedside Urine Ketone - Negative Urine Specific Parnell 1.010 Bedside Urine Occult Blood - Negative Bedside Urine pH 6.5 Bedside Urine Protein - Negative Bedside Urine Urobilinogen - Negative Bedside Urine Nitrite - Negative Bedside Urine Leukocytes - Negative Esterase Discharge Plan Departure Patient Disposition: Home Clinical Impression: Palpitations, Hypokalemia Instructions: DI for Arrhythmias, DI for Palpitations, Hypokalemia Activity Restrictions/Additional Instructions: *You have been diagnosed with palpitations, this could be a stress response and it could be exacerbated by the low potassium level. It was not very low but mildly. Please eat a wide variety of foods I know you been here waiting all day so it did not get much better. Please stay hydrated, your EKG is reassuring as well as the rest of your lab work. Please schedule follow-up with Dr. Sanabria and your PCP for a follow-up. Your D-dimer today was elevated at 672, the age adjusted threshold for a D-dimer for your age is 640. I think it is very low likelihood that you have a pulmonary embolus and we discussed CT imaging today to evaluate for this it was decided to hold off and have you follow-up with your cardiology provider and your PCP. The D-dimer test is not specific however it can not be trended. You may benefit from a Zio patch again since you are having increasing recurrence of these palpitations. There were no other concerning findings on your workup today other than the mildly low potassium. Please stay hydrated, return for worsening symptoms, your thyroid levels were normal, TSH of 1.11 and free T4 of 1.37. *What to do: *Please continue to take your regular medications as directed. [ ] New medication prescriptions sent to your pharmacy: [ ] [ ] New medication written as a paper prescription [x ] No new medications given *Please follow up with your primary care provider in 2-3 days, call for an appointment. Let them know you were seen in the Emergency Department and that we asked that you be seen for follow-up. We will electronically transmit a record of today's note if your PCP is in our system *If you do not have a primary care provider please contact [phone] to establish care with one of the [facility] primary care providers. *Return to Emergency Department if you should have any new, worsening, or concerning symptoms, such as [fever greater than 101F, chills, worsening pain, persistent vomiting or other bothersome symptoms]. Prescriptions: No Action levothyroxine 88 mcg capsule 88 mcg PO DAILY Referrals: Flynn Sanabria MD [Non-Staff] - Anne Vo PA-C [Primary Care Provider] - Stand Alone Forms: Patient Portal/API <Dallas Desai DO - Last Filed: 01/16/23 03:40> Cosign ED Attending José Manuelature Attestation: I was immediately available in the department for consultation. This documentation has been reviewed and I agree with assessment and plan. Supervised by Dallas Desai DO
[2023-01-15 18:58] LABS: Free T4, Direct Thyroxine 1.37 ng/dL (0.78-2.19)
[2023-01-15 19:11] LABS: D Dimer 672 ng/ml (<500)
[2023-01-15 19:11] LABS: Thyroid Stimulating Hormone 1.11 uIU/mL (0.47-4.68)
[2023-01-15] MEDS: POTASSIUM CHLORIDE 20 MEQ TAB 40 MEQ PO (19:13)
[2023-01-15 19:26] LABS: Troponin I < 0.012 ng/mL (0.01-0.034)
== END 2023-01-15 20:40 | disposition home or self-care (01) ==
PROVIDERS: Emergency Medicine; Emergency Provider Nurse Practitioner Critical Care Medicine; PCP Physician Assistant
DX: R00.2 Palpitations (principal); E87.6 Hypokalemia; R07.9 Chest pain, unspecified; Z20.822 Contact with and (suspected) exposure to COVID-19
CPT/HCPCS: 36415; 71045; 80053; 81003; 82550; 83690; 83735; 84439; 84443; 84484; 85025; 85379; 85610; 85730; 87635; 93005; 93010; 99284; C9803